=== PATIENT | female | born 1950 | race Caucasian/White ===

== ENCOUNTER 2017-11-30 11:54 | Emergency (ER) | payer MEDICARE ==
[2017-11-30 12:08] VITALS: BP 143/83
--- NOTE | 2017-11-30 13:11 | ED Physician Documentation ---
History of Present Illness - Stated complaint Stated Complaint: R BREAST PX - Chief complaint Chief Complaint: General - History obtained from History obtained from: Patient - History of Present Illness Timing: How many weeks ago (2) Pain level max: 8 Pain level now: 5 Improved by: tylenol Worsened by: palpation - Additonal information Additional information: Patient is a 67-year-old female who is visiting from [place]. She states she developed right sided chest wall/breast pain proximately 2 weeks ago and it is increased since that time. She states that it is worse with movement, palpation and deep breathing. Better with Tylenol last night. No fevers. No coughing. Does not have any leg pain or swelling. The pain started before her trip Review of Systems Constitutional: denies: Fever, Chills Cardiac: denies: Chest pain / pressure Respiratory: denies: Dyspnea, Cough, Wheezing GI: denies: Abdominal Pain, Nausea, Vomiting, Diarrhea Skin: denies: Rash Musculoskeletal: denies: Neck pain, Back pain Neurologic: denies: Headache PD PAST MEDICAL HISTORY - Past Medical History Past Medical History: Yes Cardiovascular: Hypertension, High cholesterol GI: GERD Other Past Medical History: Right Breast CA - Past Surgical History Past Surgical History: Yes /BPM SOLUTION ARCHITECT: Mastectomy - Present Medications Home Medications: Ambulatory Orders Medication Instructions Recorded Confirmed Atorvastatin [Lipitor] 10 mg ORAL DAILY 11/30/17 11/30/17 Lisinopril/Hydrochlorothiazide 1 each PO DAILY 11/30/17 11/30/17 [Lisinopril-Hctz 10-12.5 mg Tab] Meloxicam [Mobic] 7.5 mg PO BID PRN #20 tablet 11/30/17 Omeprazole [PriLOSEC] 20 mg PO DAILY 11/30/17 11/30/17 - Allergies Allergies/Adverse Reactions: Allergies Allergy/AdvReac Type Severity Reaction Status Date / Time codeine Allergy Rash Verified 11/30/17 12:11 - Social History Does the pt smoke?: No Smoking Status: Never smoker Does the pt drink ETOH?: No Does the pt have substance abuse?: No - Immunizations Immunizations are current?: Yes PD ED PE NORMAL - Vitals Vital signs reviewed: Yes - General General: Alert and oriented X 3, No acute distress - HEENT HEENT: Moist mucous membranes - Neck Neck: Supple, no meningeal sign - Cardiac Cardiac: RRR - Respiratory Respiratory: No respiratory distress, Clear bilaterally - Abdomen Abdomen: Soft, Non tender - Derm Derm: Warm and dry - Neuro Neuro: Alert and oriented X 3 - Psych Psych: Normal mood, Normal affect - Free text exam Free text exam: Right breast - Nipple has been removed. The remainder of the breast tissue is firm. There is no fluctuance. No overlying skin changes. She is tender palpation across the costochondral cartilage approximately ribs 6 through 8. This reproduces her pain. Results - Vitals Vitals: Vital Signs - 24 hr 11/30/17 12:06 Temperature 36.3 C L Heart Rate 94 Respiratory 16 Rate Blood Pressure 143/83 H O2 Saturation 100 Oxygen O2 Source Room air - EKG (time done) 1311 Rate: Rate (enter#) (73) Rhythm: NSR Stephan: Normal Intervals: Normal [place] QRS: Normal Ischemia: Normal ST segments Computer interpretation: Agree with computer PD MEDICAL DECISION MAKING - ED course Complexity details: reviewed results, re-evaluated patient, considered differential, d/w patient ED course: Patient is a 67-year-old female who presents to emergency department with right- sided chest wall pain. Appears consistent with costochondritis. No palpable masses. No acute findings on chest x-ray. Discussed with radiology and the radiologist, Dr. Coffman does not feel a ultrasound is appropriate at this time. We also discussed a mammogram but Dr. Coffman feels she would be better served having a mammogram in [place] and our mammogram machine is being replaced this week. Patient is comfortable going home at this time and following up as an outpatient. She will return if she worsens. She is well-appearing, nontoxic. Afebrile. No acute findings on EKG. No evidence of pulmonary embolus. Patient counseled regarding signs and symptoms for which I believe and urgent re-evaluation would be necessary. Patient with good understanding of and agreement to plan and is comfortable going home at this time This document was made in part using voice recognition software. While efforts are made to proofread this document, sound alike and grammatical errors may occur. - Sepsis Event Vital Signs: Vital Signs - 24 hr 11/30/17 12:06 Temperature 36.3 C L Heart Rate 94 Respiratory 16 Rate Blood Pressure 143/83 H O2 Saturation 100 Oxygen O2 Source Room air Departure - Departure Disposition: 01 Home, Self Care Clinical Impression: Acute costochondritis Condition: Good Instructions: ED Chest Pain Costochondritis Follow-Up: your,doctor in 1 week [Other] Prescriptions: Meloxicam [Mobic] 7.5 mg PO BID PRN #20 tablet PRN Reason: Pain Comments: Return if you worsen. It is recommended that you have another mammogram. After speaking with the radiologist today, she feels that you would be best served by having another mammogram and she recommends that you have this done with your doctor if possible. Call your doctor to move up your appointment. Discharge Date/Time: 11/30/17 15:05
--- NOTE | 2017-11-30 13:37 | XRAY Report ---
Procedure Date: 11/30/2017 Accession Number: [id number] / [id number] Procedure: XR - Chest 2 View X-Ray CPT Code: 01182 FULL RESULT: EXAM: CHEST RADIOGRAPHY EXAM DATE: 11/30/2017 01:19 PM. CLINICAL HISTORY: Pain inferior to the right breast for 2 weeks. Breast cancer diagnosed 18 years ago. COMPARISON: None. TECHNIQUE: 2 views. FINDINGS: Lungs/Pleura: No focal opacities evident. No pleural effusion. No pneumothorax. Normal volumes. Mediastinum: Heart and mediastinal contours are unremarkable. Other: Prior right breast surgery. Mild kyphoscoliosis. IMPRESSION: Normal 2-view chest radiography. [facility]
== END 2017-11-30 15:05 | disposition home or self-care (01) ==
LOC: ED 11:54
DX: M94.0 Chondrocostal junction syndrome [Tietze] (principal); I10 Essential (primary) hypertension; Z85.3 Personal history of malignant neoplasm of breast; Z90.11 Acquired absence of right breast and nipple
CPT/HCPCS: 71046; 93005; 99283; 99284